=== PATIENT | male | born 1975 | race African-American/Black ===

== ENCOUNTER 2016-09-21 04:45 | Emergency (ER) | payer OTHER ==
--- NOTE | ~2016-09-21 | CR72 ---
[facility]. [facility] A Service of [facility] & [facility] RADIOLOGY TEXT RESULTS PATIENT: GUS BALLARD LOCATION: SED : 79 UNIT #: [id number] AGE: [address]: Hira Talbot MD SEX: M ORDER DR: [id number] [address] [address] [id number] E MR#: [id number] Acc #: [id number] NAME: GSU BALLARD : 1975 SEX: M STUDY DATE/TIME: 09/21/2016 5:22 UNIT: SED ROOM: STUDY DESCRIPTION: CR Chest Single View Portable Attending Physician: Hira Talbot M.D. Ordering Physician: Hira Talbot M.D. Primary Care Physician: No Primary Care Physician MEDICAL IMAGING REPORT This report is preliminary unless electronic signature is present. EXAM Portable chest HISTORY 40-year-old male; shortness of air x1 week. COMPARISON 07/22/2014 FINDINGS AP portable view of the chest demonstrates low lung volumes, under- penetrated technique. Cardiomegaly with prominence of the pulmonary vasculature and interstitium may represent a component of CHF. No pneumothorax. Dictated by... Breanna Olguin M.D. THIS IS AN ELECTRONICALLY VERIFIED REPORT Breanna Olguin M.D. at 09/21/2016 10:06 PM Otoniel TD: 09/21/2016 12:45 JOB #: [id number] MEDICAL IMAGING REPORT Page 1 of 1
--- NOTE | ~2016-09-21 | EKG ---
PATIENT: GUS BALLARD UNIT #: [id number] Ventricular Rate: 107 BPM Atrial Rate: 107 BPM P-R Interval: 172 ms QRS Duration: 100 ms Q-T Interval: 358 ms QTC Calculation(Bezet): 477 ms P [place]: 49 degrees Calculated R [place]: 105 degrees Calculated T [place]: 54 degrees Diagnosis Line: Sinus tachycardia Diagnosis Line: Left atrial enlargement Diagnosis Line: Incomplete right bundle branch block Diagnosis Line: Right ventricular hypertrophy Diagnosis Line: Abnormal ECG Diagnosis Line: No previous ECGs available Diagnosis Line: Confirmed by YU ZARATE MD ([id number]) on 09/25/2016 Diagnosis Line: 9:32:02 AM INTERPRETING MD: ELLIOT PATEL
[~2016-09-21 04:45] MED LIST: AQUACEL TOP; BACTRIM DS TABL1 TA1 PO; BACTRIM DS TABL1 TA2 PO; CLINDAMYCIN HC300 MG PO; DAKIN'S473 M1; HYDROCODON-ACE1 EAC9 PO; LISINOPRIL5 MG PO; LORTAB 7.5-3251 EACH PO; NO MEDICATIONS; TOPAMAX50 MG PO
[2016-09-21 06:13] LABS: POC - CKMB 1.9 ng/mL (0.0-7.9); POC - TROPONIN <0.05 ng/mL (<=0.05)
[2016-09-21 06:20] LABS: URINE SOURCE CLEAN CATCH
[2016-09-21 06:22] LABS: URINE APPEARANCE CLEAR; URINE BILIRUBIN NEG (NEG); URINE BLOOD NEG (NEG); URINE COLOR YELLOW; URINE GLUCOSE NEG (NORM); URINE KETONE NEG (NEG); URINE LEUKOCYTE ESTERASE NEG (NEG); URINE NITRATE NEG (NEG); URINE PROTEIN 2+ (NEG); URINE UROBILINOGEN 0.2 MG/DL (NORM)
[2016-09-21 06:22] LABS: ALBUMIN SERUM 3.2 g/dL (3.5-5.0); BILIRUBIN, DIRECT 0.1 mg/dL (0.0-0.2); BILIRUBIN,INDIRECT 0.3 mg/dL (0.0-0.9); BILIRUBIN,TOTAL 0.4 mg/dL (0.2-2.0); CREATININE SERUM 1.1 mg/dL (0.6-1.4); GLOM FILT RATE Estimated 98.2 mL/min (>60); POTASSIUM 4.1 mmol/L (3.5-5.1); PROTEIN TOTAL SERUM 8.5 g/dL (6.0-8.3)
[2016-09-21 06:29] LABS: MICRO INDICATED? YES
[2016-09-21 06:30] LABS: URINE MUCUS PRESENT
[2016-09-21 06:32] LABS: URINE BACTERIA 1+ (NEG)
[2016-09-21 06:33] LABS: CULTURE INDICATED? YES; URINE RBC 0-2 /[HPF] (0-2)
[2016-09-21 06:35] LABS: URINE AMORPHOUS SEDIMENT AMORP URATES
[2016-09-21 06:36] LABS: URINE SQUAMOUS EPITHELIAL CELL OCCAS /[HPF]
[2016-09-21 06:52] LABS: BASOPHIL# 0.1 X10e3 (0-0.3); BASOPHIL% 0.9 % (0-2.5); EOSINOPHIL# 0.2 X10e3 (0-0.7); EOSINOPHIL% 2.4 % (0.0-7.0); HEMATOCRIT 39.2 % (38.0-50.0); HEMOGLOBIN 12.1 gm/dL (13.0-16.0); LYMPHOCYTE# 1.3 X10e3 (1.0-3.5); LYMPHOCYTE% 17.5 % (17.0-45.0); MEAN CELL VOLUME 74.3 FL (83-96); MEAN CORPUSCULAR HEMOGLOBIN 22.9 PG (28-34); MEAN CORPUSCULAR HGB CONC 30.8 g/dL (30-36); MEAN PLATELET VOLUME 8.9 FL (6.5-11.5); MONOCYTE# 0.9 X10e3 (0-1.0); MONOCYTE% 12.4 % (3.0-12.0); NEUTROPHIL# 5.1 X10e3 (1.5-7.1); NEUTROPHIL% 66.8 % (40-75); PLATELET COUNT 282 X10e3 (140-420); RED BLOOD COUNT 5.28 X10e (3.90-5.60); RED CELL DISTRIBUTION WIDTH 18.3 % (11.0-15.5); WHITE BLOOD COUNT 7.6 X10e3 (4.0-10.5)
[2016-09-21 06:54] LABS: DIFF IND NO
[2016-09-21 07:01] LABS: INR 1.6
[2016-09-21 07:09] LABS: PARTIAL THROMBOPLASTIN TIME 28.3 SECONDS (25.6-38.1)
== END 2016-09-21 07:27 | disposition home or self-care (01) ==
LOC: SED 04:45
PROVIDERS: Emergency Medicine
DX: I11.0 Hypertensive heart disease with heart failure (principal); I50.9 Heart failure, unspecified
CPT/HCPCS: 36415; 71010; 80048; 80076; 81003; 82553; 83880; 84484; 85025; 85610; 85730; 87086; 93005; 96374; 99283; J1940

== ENCOUNTER 2016-10-01 11:50 | Emergency (ER) | payer OTHER ==
--- NOTE | ~2016-10-01 | EKG ---
PATIENT: GUS BALLARD UNIT #: [id number] Ventricular Rate: 108 BPM Atrial Rate: 108 BPM P-R Interval: 172 ms QRS Duration: 100 ms Q-T Interval: 356 ms QTC Calculation(Bezet): 477 ms P [place]: 54 degrees Calculated R [place]: 151 degrees Calculated T [place]: 54 degrees Diagnosis Line: Sinus tachycardia Diagnosis Line: Right axis deviation Diagnosis Line: Pulmonary disease pattern Diagnosis Line: Incomplete right bundle branch block Diagnosis Line: Right ventricular hypertrophy Diagnosis Line: Septal infarct , age undetermined Diagnosis Line: Abnormal ECG Diagnosis Line: When compared with ECG of 21-SEP-2016 04:41, Diagnosis Line: No significant change was found Diagnosis Line: Confirmed by YU ZARATE MD ([id number]) on 10/03/2016 Diagnosis Line: 10:28:28 AM INTERPRETING MD: ELLIOT PATEL
--- NOTE | ~2016-10-01 | CR72 ---
[facility] A Service of [facility] & [facility] RADIOLOGY TEXT RESULTS PATIENT: GUS BALLARD LOCATION: [facility] : 77 UNIT #: [id number] AGE: [address]: Gume Jorge MD SEX: M ORDER DR: [id number] [facility] [address] [place], [place] [address] [id number] E MR#: [id number] Acc #: [id number] NAME: GUS BALLARD : 1975 SEX: M STUDY DATE/TIME: 10/01/2016 12:19 UNIT: [facility] ROOM: STUDY DESCRIPTION: CR Chest Single View Portable Attending Physician: Gume Jorge M.D. Ordering Physician: Gume Jorge M.D. Primary Care Physician: No Primary Care Physician MEDICAL IMAGING REPORT This report is preliminary unless electronic signature is present EXAM AP portable chest 10/01/2016 HISTORY 40-year-old male in the ED complaining of new onset shortness of air today. A past history of congestive heart failure is noted. TECHNIQUE AP portable chest x-ray. FINDINGS Lung volumes are low, largely secondary to patient body habitus. Moderately severe cardiomegaly is stable. These findings are unchanged since 09/21/2016 and 07/22/2014. Mild diffuse interstitial prominence today may be exaggerated by shallow lung expansion but could also indicate borderline vascular congestion. This appears similar when compared to the recent study of 09/21/2016 but new since the 2014 exam. There was no visible airspace consolidation or pleural effusion. IMPRESSION 1. Stable marked cardiomegaly. Possible mild vascular congestion. This is unchanged since 09/21/2016. 2. Chronically low lung volumes. Mild basilar atelectasis. Dictated by... Everardo Thornton M.D. THIS IS AN ELECTRONICALLY VERIFIED REPORT Everardo Thornton M.D. at 10/01/2016 6:48 PM MARYANN/umesh TD: 10/01/2016 13:50 [facility] A Service of [facility] RADIOLOGY TEXT RESULTS PATIENT: GUS BALLARD LOCATION: [facility] #: [id number] : [birth year] UNIT #: [id number] AGE: [address]: Gume Jorge MD SEX: M ORDER DR: JOB #: [id number] MEDICAL IMAGING REPORT Page 1 of 1 COPY
[2016-10-01 12:44] LABS: BASOPHIL% 0.6 % (0-2.5); EOSINOPHIL# 0.2 X10e3 (0-0.7); EOSINOPHIL% 2.5 % (0.0-7.0); HEMATOCRIT 37.3 % (38.0-50.0); HEMOGLOBIN 11.3 gm/dL (13.0-16.0); LYMPHOCYTE# 1.3 X10e3 (1.0-3.5); LYMPHOCYTE% 16.3 % (17.0-45.0); MEAN CELL VOLUME 73.6 FL (83-96); MEAN CORPUSCULAR HEMOGLOBIN 22.2 PG (28-34); MEAN CORPUSCULAR HGB CONC 30.2 g/dL (30-36); MEAN PLATELET VOLUME 8.5 FL (6.5-11.5); MONOCYTE% 12.2 % (3.0-12.0); NEUTROPHIL# 5.5 X10e3 (1.5-7.1); NEUTROPHIL% 68.4 % (40-75); PLATELET COUNT 284 X10e3 (140-420); RED BLOOD COUNT 5.07 X10e (3.90-5.60); RED CELL DISTRIBUTION WIDTH 18.2 % (11.0-15.5); WHITE BLOOD COUNT 8.1 X10e3 (4.0-10.5)
[2016-10-01 12:46] LABS: DIFF IND NO
[2016-10-01 13:09] LABS: ALBUMIN SERUM 3.1 g/dL (3.5-5.0); BILIRUBIN, DIRECT 0.2 mg/dL (0.0-0.2); BILIRUBIN,INDIRECT 0.9 mg/dL (0.0-0.9); BILIRUBIN,TOTAL 1.1 mg/dL (0.2-2.0); BUN/CREATININE RATIO 12.22; CREATININE SERUM 0.9 mg/dL (0.6-1.4); GLOM FILT RATE Estimated 125.1 mL/min (>60); POTASSIUM 3.7 mmol/L (3.5-5.1)
[2016-10-01 13:21] LABS: INR 1.3
[2016-10-01 13:25] LABS: POC - CKMB 2.1 ng/mL (0.0-7.9); POC - TROPONIN <0.05 ng/mL (<=0.05)
== END 2016-10-01 14:04 | disposition home or self-care (01) ==
LOC: CED 11:50
PROVIDERS: Emergency Medicine
DX: I50.9 Heart failure, unspecified (principal)
CPT/HCPCS: 36415; 71010; 80048; 80076; 82553; 83880; 84484; 85025; 85610; 93005; 96374; 99284; J1940